=== PATIENT | female | born 1985 | race Caucasian/White ===

== ENCOUNTER 2019-08-11 10:09 | Observation (INO) | payer MEDICAID ==
[~2019-08-11] VITALS: Ht 160 cm; Wt 68.0 kg
[2019-08-11] MEDS ORDERED: FERR-252 PO (10:30)
[2019-08-11] MEDS ORDERED: PNV11TAB3 PO (10:30)
[2019-08-11 11:01] VITALS: BP 97/60
== END 2019-08-11 14:00 | disposition home or self-care (01) ==
LOC: MLD 10:09
PROVIDERS: ADMIT Obstetrics & Gynecology; ATTEND Obstetrics & Gynecology
DX: O24.419 Gestational diabetes mellitus in pregnancy, unspecified control (principal); O36.8130 Decreased fetal movements, third trimester, not applicable or unspecified; O26.893 Other specified pregnancy related conditions, third trimester; R10.9 Unspecified abdominal pain; Z3A.35 35 weeks gestation of pregnancy
CPT/HCPCS: 59025; 76819; 81000; G0378; Q0092

== ENCOUNTER 2019-09-08 22:54 | Inpatient (IN) | payer MEDICAID ==
[~2019-09-08] VITALS: Ht 160 cm; Wt 68.0 kg
[~2019-09-08 22:54] MED LIST: FERR-252 PO; PNV11TAB3 PO
[2019-09-08 23:27] VITALS: BP 112/80
[2019-09-08] MEDS ORDERED: LACTATED RINGERS 1,000 ML IV SCH (23:49)
[2019-09-08] MEDS ORDERED: METHYLERGONOVINE 0.2 MG/ML AMP IM PRN (23:50)
[2019-09-08] MEDS ORDERED: NALBUPHINE 10 MG/ML AMP IVP PRN (23:50)
[2019-09-08] MEDS ORDERED: PROMETHAZINE 25 MG/ML VIAL IVP PRN (23:50)
[2019-09-08] MEDS ORDERED: CARBOPROST 250 MCG/ML AMP IM PRN (23:50)
[2019-09-08] MEDS ORDERED: MISOPROSTOL 25 MCG TAB VG PRN (23:55)
[2019-09-09 00:55] LABS: BASOPHILS % (AUTO) 0.3 % (0.0-2.0); EOSINOPHILS % (AUTO) 0.7 % (0.0-4.0); HEMATOCRIT 38.4 % (36-48); HEMOGLOBIN 12.9 g/dL (12.0-16.0); LYMPHOCYTES # (AUTO) 1.7 K/uL (2.5-16.5); LYMPHOCYTES % (AUTO) 30.4 % (20.5-51.1); MEAN CORPUSCULAR HEMOGLOBIN 27 pg (27-31); MEAN CORPUSCULAR HGB CONC 34 g/dL (33-37); MEAN CORPUSCULAR VOLUME 80.8 fL (80-94); MONOCYTES # (AUTO) 0.4 K/uL (0.8-1.0); MONOCYTES % (AUTO) 7.1 % (1.7-9.3); NEUTROPHILS # (AUTO) 3.3 K/uL (1.8-7.7); NEUTROPHILS % (AUTO) 61.5 % (42.2-75.2); PLATELET COUNT (AUTO) 154 K/uL (140-450); RED BLOOD CELL COUNT(AUTO) 4.75 MIL/uL (4.20-5.40); WHITE BLOOD COUNT (AUTO) 5.4 K/uL (4.8-10.8)
[2019-09-09] MEDS ORDERED: MISOPROSTOL 25 MCG TAB ONE (01:02)
[2019-09-09 01:13] LABS: ANION GAP 14.6 (8-16); CARBON DIOXIDE 22.1 mmol/L (21-32); CREATININE 0.5 mg/dL (0.6-1.3); POTASSIUM 3.7 mmol/L (3.5-5.1)
[2019-09-09 01:19] LABS: ALBUMIN 2.8 g/dL (3.4-5.0); TOTAL BILIRUBIN 0.6 mg/dL (0.0-1.0)
[2019-09-09 01:23] LABS: APPEARANCE,URINE HAZY (CLEAR); BILIRUBIN,URINE NEGATIVE (NEGATIVE); BLOOD, URINE NEGATIVE (NEGATIVE); COLOR,URINE YELLOW (YELLOW); LEUKOCYTE ESTERASE ,URINE 2+ (NEGATIVE); NITRITE, URINE NEGATIVE (NEGATIVE); PH,URINE 6.5 (5.0-9.0); UGLUCOSE NEGATIVE (NEGATIVE)
[2019-09-09 01:25] LABS: RBC,URINE 0-5 /HPF (0-5)
[2019-09-09] MEDS ORDERED: OXYTOCIN 20 UNITS/LR PREMIX 1,000 ML IV ONE ×2 (05:33→20:13)
[2019-09-09] MEDS ORDERED: LIDOCAINE 1% 500 MG/50 ML VIAL ONE (05:33)
[2019-09-10] MEDS ORDERED: TEMAZEPAM 15 MG CAP PO PRN (00:45)
[2019-09-10] MEDS ORDERED: oxyCODONE/APAP 5/325 MG 1 TAB TAB PO PRN (00:45)
[2019-09-10] MEDS ORDERED: METHYLERGONOVINE 0.2 MG/ML AMP IM PRN (00:45)
[2019-09-10] MEDS ORDERED: HYDROcodone/APAP 5/325 MG 1 TAB TAB PO PRN (00:45)
[2019-09-10] MEDS ORDERED: IBUPROFEN 800 MG TAB PO PRN (00:45)
[2019-09-10] MEDS ORDERED: MEASLES, MUMPS, AND RUBELLA 1 VIAL SQVAC PRN (00:45)
[2019-09-10] MEDS ORDERED: OXYTOCIN 10 UNITS/ML VIAL IM PRN (00:45)
[2019-09-10 06:33] LABS: HEMATOCRIT 41.5 % (36-48); HEMOGLOBIN 13.6 g/dL (12.0-16.0)
[2019-09-10] MEDS ORDERED: DOCUSATE SOD/SENNA 50/8.6 MG 1 TAB PO SCH (21:00)
[2019-09-11] MEDS ORDERED: DOCUSATE SOD/SENNA 50/8.6 MG 1 TAB PO SCH (21:00)
== END 2019-09-11 12:45 | disposition home or self-care (01) | DRG 560 ==
LOC: MLD 22:54 → MFCC 09-09 10:00
PROVIDERS: ADMIT Obstetrics & Gynecology; ATTEND Obstetrics & Gynecology
PROC: 10E0XZZ Delivery of Products of Conception, External Approach (ICD-10-PCS; principal; 2019-09-09)
DX: O36.8930 Maternal care for other specified fetal problems, third trimester, not applicable or unspecified (principal); O24.429 Gestational diabetes mellitus in childbirth, unspecified control; Z37.0 Single live birth; Z3A.39 39 weeks gestation of pregnancy
CPT/HCPCS: 36415; 59200; 59409; 80053; 81001; 82948; 85018; 85025; 86592; 86886; 86900; 86901; 87086; J2001; J2590; J7120